=== PATIENT | male | born 1975 | race Caucasian/White ===

== ENCOUNTER 2023-02-08 23:32 | Emergency (ER) | payer OTHER ==
[2023-02-08 23:50] VITALS: BP 122/78; PULSE 89; RESP 18; TEMP 98.6; BMI 28.3
[2023-02-09] MEDS ORDERED: DIPHTH,PERTUSS(ACELL),TET 0.5 ML DISP.SYRIN IM ONE ×2 (00:18→00:34)
[2023-02-09] MEDS ORDERED: BACITRACIN ZINC 15 GM TUBE TOPICAL OINTMENT ONE (02:30)
== END 2023-02-09 02:30 | disposition home or self-care (01) ==
LOC: JER 23:32
PROC: 0HQ1XZZ Repair Face Skin, External Approach (ICD-10-PCS; principal; 2023-02-08)
PROC: 3E0234Z Introduction of Serum, Toxoid and Vaccine into Muscle, Percutaneous Approach (ICD-10-PCS; 2023-02-09)
DX: S01.81XA Laceration without foreign body of other part of head, initial encounter (principal); W10.8XXA Fall (on) (from) other stairs and steps, initial encounter
CPT/HCPCS: 12001-25; 70450-TC; 72125-TC; 90471; 90715; 99284-25